=== PATIENT | male | born 1965 | race Native Hawaiian/Other Pacific Islander ===

== ENCOUNTER 2022-02-19 09:39 | Outpatient (CLI) | payer OTHER | END 2022-02-19 18:57 | disposition home or self-care (01) | LOC: LAB 09:39 | PROVIDERS: ATTEND Internal Medicine | DX: Z11.52 Encounter for screening for COVID-19 (principal) | CPT/HCPCS: 87635; G2023; U0003 ==

== ENCOUNTER 2022-06-11 12:36 | Outpatient (CLI) | payer OTHER | END 2022-06-11 19:06 | disposition home or self-care (01) | LOC: RAD 12:36 | PROVIDERS: ATTEND Orthopaedic Surgery | DX: M54.59 Other low back pain (principal); M25.552 Pain in left hip ==